=== PATIENT | female | born 1945 | race Caucasian/White ===

== ENCOUNTER → 2016-10-09 | Outpatient (CLI) | payer OTHER ==
[~2016-10-09] MED LIST: CIPROFLOXACIN500 M1 PO; FERROUS SULFAT325 MG PO; LISINOPRIL-HCT1 EACH PO; LOVENOX40 MG/0.4 SC; MOTRIN600 MG PO; TYLENOL EXTRA500 MG PO; ULTRAM50 MG PO; ZESTRIL10 MG PO
[2016-10-09 10:44] LABS: HEMATOCRIT 39.9 % (36.0-46.0); MCH 31.2 PG (29.0-34.0); MCHC 32.1 G/DL (30.0-36.0); MCV 97.3 FL (83-99); MEAN PLAT.VOLUME 10.1 uM^3 (9.5-12.4); PLATELET COUNT 201 K/uL (156-360); RBC DIS.WIDTH-CV 14.1 % (11.8-14.6); RBC DIS.WIDTH-SD 50.6 % (39-53); WHITE BLOOD COUNT 6.4 K/uL (4.1-10.2)
[2016-10-09 10:54] LABS: PROTHROMBIN TIME 10.1 (9.2-11.2); PTT 23.6 (25-32)
== END | disposition home or self-care (01) ==
LOC: EDSTATUS 10-01 10:00 → OPR 10-01 10:00
PROVIDERS: Internal Medicine Pulmonary Disease
PROC: 0BBC3ZX Excision of Right Upper Lung Lobe, Percutaneous Approach, Diagnostic (ICD-10-PCS; principal; 2016-10-09)
DX: C34.11 Malignant neoplasm of upper lobe, right bronchus or lung (principal); Z68.41 Body mass index [BMI] 40.0-44.9, adult; Z83.3 Family history of diabetes mellitus; Z80.42 Family history of malignant neoplasm of prostate
CPT/HCPCS: 71010; 77012; 85027; 85610; 85730; 88305; 88341 TC; 88342 TC; J3010

== ENCOUNTER 2017-06-23 10:13 | Inpatient (IN) | payer OTHER ==
[2017-06-23] VITALS (12 sets, daily range): BP systolic 102–143; BP diastolic 55–83
[~2017-06-23] VITALS: Ht 160 cm; Wt 105.7 kg
[~2017-06-23 10:13] MED LIST changes: +ALIVE WOMEN'S1 EACH PO; +LOSARTAN POTASS25 MG PO; +OMEGA 3 500 SO1 EACH PO
[2017-06-23 11:15] LABS: INTER. NORMALIZED RATIO 1.2; PROTHROMBIN TIME 13.2 SEC (10.2-12.9)
[2017-06-23 11:16] LABS: CHLORIDE 109 mEq/L (99-109); POTASSIUM 4.3 mEq/L (3.7-5.4); SODIUM 140 mEq/L (136-147)
[2017-06-23 11:17] LABS: GLUCOSE 114 mg/dL (70-99)
[2017-06-23 11:19] LABS: ANION GAP 9 MEQ/L (2-14)
[2017-06-23 11:21] LABS: GFR ESTIMATE (CALCULATED) 39 mL/min/
[2017-06-23 11:22] LABS: UREA NITROGEN (BUN) 24 mg/dL (9-23)
[2017-06-23 11:25] LABS: EOSINOPHIL (%) 0.2 % (0-5); HEMATOCRIT 16.7 % (36.0-46.0); IMMATURE GRANULOCYTE (%) 0.5 % (0.0-0.7); INSTRUMENT ABS NEUTROPHIL CT 5.3 K/uL; LYMPHOCYTE COUNT 0.3 K/uL (1.0-2.8); MCH 24.6 PG (29.0-34.0); MCHC 27.5 G/DL (30.0-36.0); MCV 89.3 FL (83-99); MONOCYTE (%) 7.5 % (3-12); MONOCYTE COUNT 0.5 K/uL (0-0.8); NEUTROPHIL (%) 86.1 % (45-76); NEUTROPHIL COUNT 5.3 K/uL (1.8-6.4); NRBC (%) 0.7 /100 WBC (0-0); RBC DIS.WIDTH-CV 17.7 % (11.8-14.6); RBC DIS.WIDTH-SD 56.7 % (39-53); RED BLOOD COUNT 1.87 M/uL (3.80-5.20); WHITE BLOOD COUNT 6.1 K/uL (4.1-10.2)
[2017-06-23] MEDS ORDERED: ASCORBIC ACID250 MG PO (12:21)
[2017-06-23 12:24] LABS: HEMATOLOGY COMMENT 1 SMEAR COMPATIBLE; MEAN PLAT.VOLUME 10.4 uM^3 (9.5-12.4); PLAT.SUFFICIENCY ADEQUATE; PLATELET COUNT 276 K/uL (156-360)
[2017-06-23 13:35] LABS: ADD MIUA? YES; BILIRUBIN NEGATIVE; BLOOD SMALL; COLOR YELLOW ((YELLOW)); GLUCOSE (STRIP) NEGATIVE; KETONES NEGATIVE; LEUKOCYTES SMALL; NITRITE POSITIVE; PROTEIN (STRIP) 30; SPECIFIC GRAVITY 1.018 (1.000-1.030)
[2017-06-23 13:42] LABS: BACTERIA 1+ /HPF; EPITHELIAL CELLS 2+ /HPF; MUCUS TRACE /LPF; RED BLOOD CELLS NONE SEEN /HPF (0-5); UCUL ADDED? YES; WHITE BLOOD CELLS 15-20 /HPF (0-5)
[2017-06-23 22:28] LABS: HEMATOCRIT 27.9 % (36.0-46.0); MCV 89.1 FL (83-99)
[2017-06-24 00:10] VITALS: BP 122/79
[2017-06-24 04:30] VITALS: BP 123/64
[2017-06-24 04:58] LABS: CHLORIDE 105 mEq/L (99-109); POTASSIUM 4.1 mEq/L (3.7-5.4); SODIUM 136 mEq/L (136-147)
[2017-06-24 05:00] LABS: GLUCOSE 94 mg/dL (70-99)
[2017-06-24 05:01] LABS: ANION GAP 8 MEQ/L (2-14); EOSINOPHIL (%) 0.6 % (0-5); IMMATURE GRANULOCYTE (%) 1.1 % (0.0-0.7); IMMATURE GRANULOCYTE COUNT 0.1 K/uL; INSTRUMENT ABS NEUTROPHIL CT 5.7 K/uL; LYMPHOCYTE COUNT 0.5 K/uL (1.0-2.8); MCH 26.5 PG (29.0-34.0); MCHC 30.8 G/DL (30.0-36.0); MCV 86.1 FL (83-99); MEAN PLAT.VOLUME 9.7 uM^3 (9.5-12.4); MONOCYTE (%) 8.6 % (3-12); MONOCYTE COUNT 0.6 K/uL (0-0.8); NEUTROPHIL COUNT 5.7 K/uL (1.8-6.4); PLATELET COUNT 248 K/uL (156-360); RBC DIS.WIDTH-CV 16.9 % (11.8-14.6); RBC DIS.WIDTH-SD 52.5 % (39-53)
[2017-06-24 05:03] LABS: GFR ESTIMATE (CALCULATED) 36 mL/min/
[2017-06-24 05:04] LABS: UREA NITROGEN (BUN) 22 mg/dL (9-23)
[2017-06-24 05:05] LABS: RED BLOOD COUNT 3.02 M/uL (3.80-5.20)
[2017-06-24 07:39] VITALS: BP 162/80
[2017-06-24 12:21] LABS: HEMATOCRIT 26.9 % (36.0-46.0); MCV 86.8 FL (83-99)
[2017-06-24 12:55] VITALS: BP 157/86
[2017-06-24 19:54] LABS: HEMATOCRIT 26.4 % (36.0-46.0); MCV 86.3 FL (83-99)
[2017-06-24 20:15] VITALS: BP 140/73
[2017-06-25] VITALS (9 sets, daily range): BP systolic 110–140; BP diastolic 53–65
[2017-06-25 05:31] LABS: HEMATOCRIT 24.9 % (36.0-46.0); MCH 26.2 PG (29.0-34.0); MCHC 29.7 G/DL (30.0-36.0); MCV 88.3 FL (83-99); MEAN PLAT.VOLUME 10.1 uM^3 (9.5-12.4); NRBC (%) 0.4 /100 WBC (0-0); PLATELET COUNT 227 K/uL (156-360); RBC DIS.WIDTH-CV 16.9 % (11.8-14.6); RBC DIS.WIDTH-SD 53.7 % (39-53); RED BLOOD COUNT 2.82 M/uL (3.80-5.20); WHITE BLOOD COUNT 7.2 K/uL (4.1-10.2)
[2017-06-25 05:54] LABS: ANION GAP 10 MEQ/L (2-14); CHLORIDE 104 MEQ/L (99-109); GFR ESTIMATE (CALCULATED) 34 mL/min/; GLUCOSE 103 mg/dL (70-99); POTASSIUM 4.5 MEQ/L (3.7-5.4); SAMPLE HEMOLYSIS CHECK 0; SAMPLE ICTERIC CHECK 0; SAMPLE LIPEMIA CHECK 0; SODIUM 138 MEQ/L (136-147); UREA NITROGEN (BUN) 20 mg/dL (9-23)
[2017-06-25 08:16] LABS: HEMATOCRIT 23.4 % (36.0-46.0)
[2017-06-25 20:11] LABS: HEMATOCRIT 29.7 % (36.0-46.0); MCV 88.4 FL (83-99)
[2017-06-26 03:59] VITALS: BP 119/76
[2017-06-26 07:15] VITALS: BP 102/50
[2017-06-26 07:57] LABS: HEMATOCRIT 26.6 % (36.0-46.0)
[2017-06-26 09:18] LABS: MCH 27.8 PG (29.0-34.0); MCHC 30.9 G/DL (30.0-36.0); MEAN PLAT.VOLUME 10.2 uM^3 (9.5-12.4); NRBC (%) 0.2 /100 WBC (0-0); PLATELET COUNT 189 K/uL (156-360); RBC DIS.WIDTH-CV 17.4 % (11.8-14.6); RED BLOOD COUNT 2.99 M/uL (3.80-5.20); WHITE BLOOD COUNT 9.6 K/uL (4.1-10.2)
[2017-06-26 09:30] LABS: ANION GAP 8 MEQ/L (2-14); CHLORIDE 107 MEQ/L (99-109); GFR ESTIMATE (CALCULATED) 34 mL/min/; GLUCOSE 114 mg/dL (70-99); POTASSIUM 4.4 MEQ/L (3.7-5.4); SAMPLE HEMOLYSIS CHECK 0; SAMPLE ICTERIC CHECK 0; SAMPLE LIPEMIA CHECK 0; SODIUM 138 MEQ/L (136-147); UREA NITROGEN (BUN) 20 mg/dL (9-23)
[2017-06-26] MEDS ORDERED: PROTONIX IV40 MG PO (11:24)
[2017-06-26] MEDS ORDERED: ANUCORT-HC25 MG PR (11:24)
[2017-06-26 11:39] VITALS: BP 124/53
[2017-06-26] MEDS ORDERED: PANTOPRAZOLE SO40 MG PO (12:00)
[2017-06-26 15:36] VITALS: BP 127/65
[2017-06-26 17:00] VITALS: BP 102/61
== END 2017-06-26 19:23 | disposition home or self-care (01) | DRG 378 ==
LOC: EME 10:13 → EDOF 11:54 → 4EAST 11:54 → ENRESERV 11:56 → EDOF 11:57 → ENRESERV 12:05 → 4EAST 14:38 → EDPENDDISDT 06-26 → EDPENDDISTM 06-26 → 4EAST 06-26 19:23
PROVIDERS: Emergency Medicine; Internal Medicine; Internal Medicine Gastroenterology
PROC: 30233N1 Transfusion of Nonautologous Red Blood Cells into Peripheral Vein, Percutaneous Approach (ICD-10-PCS; principal; 2017-06-23)
PROC: 0W3P8ZZ Control Bleeding in Gastrointestinal Tract, Via Natural or Artificial Opening Endoscopic (ICD-10-PCS; 2017-06-24)
DX: K57.31 Diverticulosis of large intestine without perforation or abscess with bleeding (principal); D62 Acute posthemorrhagic anemia; K62.7 Radiation proctitis; K64.8 Other hemorrhoids; D64.9 Anemia, unspecified; K21.9 Gastro-esophageal reflux disease without esophagitis; J44.9 Chronic obstructive pulmonary disease, unspecified; E66.9 Obesity, unspecified; N18.3 Chronic kidney disease, stage 3 (moderate); I78.1 Nevus, non-neoplastic; I12.9 Hypertensive chronic kidney disease with stage 1 through stage 4 chronic kidney disease, or unspecified chronic kidney disease; Z92.21 Personal history of antineoplastic chemotherapy; Z90.710 Acquired absence of both cervix and uterus; Z83.71 Family history of colonic polyps; Z85.43 Personal history of malignant neoplasm of ovary; Z92.3 Personal history of irradiation; Z85.42 Personal history of malignant neoplasm of other parts of uterus; Z87.442 Personal history of urinary calculi
CPT/HCPCS: 80048; 80069; 81003; 85014; 85018; 85025; 85027; 85610; 85730; 86850; 86900; 86901; 86920; 87077; 87086; 87186; 99281; 99285; C9113; J0696; J1940; J2405; J7030; P9016; P9040

== ENCOUNTER 2017-07-05 17:27 | Inpatient (IN) | payer OTHER ==
[~2017-07-05] VITALS: Ht 160 cm; Wt 101.0 kg
[~2017-07-05 17:27] MED LIST changes: +ANUCORT-HC25 MG PR; +ASCORBIC ACID250 MG PO; +PANTOPRAZOLE SO40 MG PO; +PROTONIX IV40 MG PO
[2017-07-05 18:17] LABS: HEMATOCRIT 25.3 % (36.0-46.0); HEMOGLOBIN 7.6 G/DL (11.9-15.5); MCH 26.6 PG (29.0-34.0); MCV 88.5 FL (83-99); RBC DIS.WIDTH-CV 17.7 % (11.8-14.6); RBC DIS.WIDTH-SD 56.4 % (39-53); RED BLOOD COUNT 2.86 M/uL (3.80-5.20); WHITE BLOOD COUNT 17.9 K/uL (4.1-10.2)
[2017-07-05 18:19] LABS: PLATELET COUNT 272 K/uL (156-360)
[2017-07-05 18:22] LABS: CARBON DIOXIDE (BICARBONATE) 27.1 MEQ/L (20-31)
[2017-07-05 18:30] LABS: CHLORIDE 104 mEq/L (99-109); POTASSIUM 4.3 mEq/L (3.7-5.4); SODIUM 137 mEq/L (136-147)
[2017-07-05 18:31] LABS: GLUCOSE 111 mg/dL (70-99)
[2017-07-05 18:35] LABS: CREATININE 1.5 mg/dL (0.6-1.3); GFR ESTIMATE (CALCULATED) 36 mL/min/
[2017-07-05 18:36] LABS: UREA NITROGEN (BUN) 22 mg/dL (9-23)
[2017-07-05 18:38] LABS: TROP-I INTERPRETATION NEGATIVE; TROPONIN-I < 0.01 ng/mL (0.0-0.30)
[2017-07-05] MEDS ORDERED: TUMS500 MG PO (20:43)
[2017-07-05] MEDS ORDERED: PROTONIX40 MG PO (20:43)
[2017-07-05 20:45] LABS: ALBUMIN 2.7 g/dL (3.2-4.8)
[2017-07-05 20:48] LABS: TOTAL PROTEIN 6.1 g/dL (6.4-8.3)
[2017-07-05 20:50] LABS: TOTAL BILIRUBIN 1.6 mg/dL (0.0-1.0)
[2017-07-05 20:51] LABS: ALKALINE PHOSPHATASE 258 IU/L (3-129)
[2017-07-05 20:53] LABS: AST (GOT) 29 IU/L (2-34)
[2017-07-05 20:54] LABS: ALT (GPT) 61 IU/L (3-49); DIRECT BILIRUBIN 0.9 mg/dL (0.0-0.3)
[2017-07-05 20:55] LABS: LIPASE 39 U/L (1.0-51.0)
[2017-07-06] VITALS (11 sets, daily range): BP systolic 117–153; BP diastolic 59–77
[2017-07-06 00:30] LABS: HEMATOCRIT 25.2 % (36.0-46.0); HEMOGLOBIN 7.5 G/DL (11.9-15.5); MCV 89.4 FL (83-99)
[2017-07-06 06:02] LABS: BASOPHIL (%) 0.1 % (0-1); EOSINOPHIL (%) 0.4 % (0-5); EOSINOPHIL COUNT 0.1 K/uL (0-0.3); HEMATOCRIT 23.1 % (36.0-46.0); HEMOGLOBIN 6.9 G/DL (11.9-15.5); IMMATURE GRANULOCYTE (%) 0.9 % (0.0-0.7); LYMPHOCYTE (%) 2.7 % (15-42); LYMPHOCYTE COUNT 0.4 K/uL (1.0-2.8); MCH 26.6 PG (29.0-34.0); MCHC 29.9 G/DL (30.0-36.0); MCV 89.2 FL (83-99); MONOCYTE (%) 6.7 % (3-12); MONOCYTE COUNT 1.1 K/uL (0-0.8); NEUTROPHIL (%) 89.2 % (45-76); NEUTROPHIL COUNT 13.9 K/uL (1.8-6.4); PLATELET COUNT 245 K/uL (156-360); RBC DIS.WIDTH-CV 17.6 % (11.8-14.6); RBC DIS.WIDTH-SD 56.5 % (39-53); RED BLOOD COUNT 2.59 M/uL (3.80-5.20); WHITE BLOOD COUNT 15.6 K/uL (4.1-10.2)
[2017-07-06 06:08] LABS: ALBUMIN 2.4 g/dL (3.2-4.8)
[2017-07-06 06:09] LABS: AMYLASE 67 IU/L (1-118); CHLORIDE 106 mEq/L (99-109); POTASSIUM 4.7 mEq/L (3.7-5.4); SODIUM 138 mEq/L (136-147)
[2017-07-06 06:11] LABS: GLUCOSE 112 mg/dL (70-99); TOTAL PROTEIN 5.4 g/dL (6.4-8.3)
[2017-07-06 06:13] LABS: TOTAL BILIRUBIN 1.2 mg/dL (0.0-1.0)
[2017-07-06 06:14] LABS: ALKALINE PHOSPHATASE 215 IU/L (3-129)
[2017-07-06 06:15] LABS: CREATININE 1.4 mg/dL (0.6-1.3); GFR ESTIMATE (CALCULATED) 39 mL/min/
[2017-07-06 06:16] LABS: AST (GOT) 25 IU/L (2-34); UREA NITROGEN (BUN) 24 mg/dL (9-23)
[2017-07-06 06:17] LABS: ALT (GPT) 46 IU/L (3-49)
[2017-07-06 06:18] LABS: LIPASE 34 U/L (1.0-51.0)
[2017-07-06 13:33] LABS: HEMATOCRIT 26.2 % (36.0-46.0); MCV 87.9 FL (83-99)
[2017-07-06 13:53] LABS: INTER. NORMALIZED RATIO 1.2
[2017-07-06 19:32] LABS: HEMATOCRIT 27.4 % (36.0-46.0); HEMOGLOBIN 8.1 G/DL (11.9-15.5); MCV 89.5 FL (83-99)
[2017-07-07] VITALS (9 sets, daily range): BP systolic 119–156; BP diastolic 64–81
[2017-07-07 00:38] LABS: HEMATOCRIT 25.1 % (36.0-46.0); HEMOGLOBIN 7.9 G/DL (11.9-15.5); MCH 27.8 PG (29.0-34.0); MCHC 31.5 G/DL (30.0-36.0); MCV 88.4 FL (83-99); NRBC (%) 0.2 /100 WBC (0-0); PLATELET COUNT 242 K/uL (156-360); RBC DIS.WIDTH-CV 16.8 % (11.8-14.6); RBC DIS.WIDTH-SD 54.2 % (39-53); RED BLOOD COUNT 2.84 M/uL (3.80-5.20); WHITE BLOOD COUNT 15.3 K/uL (4.1-10.2)
[2017-07-07 08:04] LABS: HEMOGLOBIN 8.1 G/DL (11.9-15.5); MCH 26.1 PG (29.0-34.0); MCV 87.1 FL (83-99); NRBC (%) 0.1 /100 WBC (0-0); PLATELET COUNT 242 K/uL (156-360); RBC DIS.WIDTH-SD 52.1 % (39-53); WHITE BLOOD COUNT 15.8 K/uL (4.1-10.2)
[2017-07-07 17:11] LABS: HEMATOCRIT 29.3 % (36.0-46.0); MCH 27.4 PG (29.0-34.0); MCHC 30.7 G/DL (30.0-36.0); MCV 89.3 FL (83-99); PLATELET COUNT 212 K/uL (156-360); RBC DIS.WIDTH-CV 17.2 % (11.8-14.6); RBC DIS.WIDTH-SD 55.8 % (39-53); RED BLOOD COUNT 3.28 M/uL (3.80-5.20); WHITE BLOOD COUNT 14.7 K/uL (4.1-10.2)
[2017-07-08 01:18] LABS: HEMATOCRIT 28.8 % (36.0-46.0); MCH 27.6 PG (29.0-34.0); MCHC 31.3 G/DL (30.0-36.0); MCV 88.3 FL (83-99); NRBC (%) 0.1 /100 WBC (0-0); RBC DIS.WIDTH-CV 17.2 % (11.8-14.6); RBC DIS.WIDTH-SD 54.4 % (39-53); RED BLOOD COUNT 3.26 M/uL (3.80-5.20); WHITE BLOOD COUNT 16.5 K/uL (4.1-10.2)
[2017-07-08 01:19] LABS: PLATELET COUNT 287 K/uL (156-360)
[2017-07-08 04:02] VITALS: BP 118/58
[2017-07-08 07:34] VITALS: BP 131/67
[2017-07-08 07:42] LABS: HEMOGLOBIN 7.9 G/DL (11.9-15.5); MCH 26.9 PG (29.0-34.0); MCHC 30.4 G/DL (30.0-36.0); MCV 88.4 FL (83-99); PLATELET COUNT 229 K/uL (156-360); RBC DIS.WIDTH-CV 17.3 % (11.8-14.6); RBC DIS.WIDTH-SD 54.1 % (39-53); RED BLOOD COUNT 2.94 M/uL (3.80-5.20)
[2017-07-08 08:08] LABS: CHLORIDE 104 MEQ/L (99-109); CREATININE 1.2 MG/DL (0.6-1.3); GFR ESTIMATE (CALCULATED) 47 mL/min/; GLUCOSE 91 mg/dL (70-99); SODIUM 136 MEQ/L (136-147); UREA NITROGEN (BUN) 18 mg/dL (9-23)
[2017-07-08 08:12] LABS: POTASSIUM 3.7 MEQ/L (3.7-5.4)
[2017-07-08 11:54] VITALS: BP 114/65
[2017-07-08 12:19] LABS: HEMATOCRIT 28.2 % (36.0-46.0); HEMOGLOBIN 8.4 G/DL (11.9-15.5); MCV 89.8 FL (83-99)
[2017-07-08 16:09] VITALS: BP 131/61
[2017-07-08 18:50] VITALS: BP 134/76
[2017-07-08 23:30] VITALS: BP 114/57
[2017-07-09] VITALS (8 sets, daily range): BP systolic 108–127; BP diastolic 56–77
[2017-07-09 06:53] LABS: HEMATOCRIT 25.4 % (36.0-46.0); HEMOGLOBIN 7.7 G/DL (11.9-15.5); MCH 27.2 PG (29.0-34.0); MCHC 30.3 G/DL (30.0-36.0); MCV 89.8 FL (83-99); PLATELET COUNT 226 K/uL (156-360); RBC DIS.WIDTH-CV 17.2 % (11.8-14.6); RBC DIS.WIDTH-SD 55.9 % (39-53); RED BLOOD COUNT 2.83 M/uL (3.80-5.20); WHITE BLOOD COUNT 11.3 K/uL (4.1-10.2)
[2017-07-09] MEDS ORDERED: CYANOCOBALAM1000 MCG PO (09:17)
[2017-07-09] MEDS ORDERED: VENTOLIN HFA18 GM IH (10:50)
[2017-07-11 02:06] LABS: AP Bone Isoenzyme 22 % (28-66); AP Intestine Isoenzyme 0 % (1-24); AP Liver Isoenzyme 52 % (25-69); AP Macrohepatic Isoenzyme 26 % (<=0); AP Placental Isoenzyme 0 % (<=0); Alkaline Phosphatase, Total 210 U/L (33-130)
== END 2017-07-09 16:12 | disposition home or self-care (01) | DRG 424 ==
LOC: EME 17:27 → 2EAST 22:15 → EDOF 22:15 → ENRESERV 22:17 → 2EAST 23:53
PROVIDERS: Emergency Medicine; Hospitalist; Physician Assistant Medical; Specialist; Student in an Organized Health Care Education/Training Program
PROC: 30233N1 Transfusion of Nonautologous Red Blood Cells into Peripheral Vein, Percutaneous Approach (ICD-10-PCS; principal; 2017-07-06)
PROC: 06H03DZ Insertion of Intraluminal Device into Inferior Vena Cava, Percutaneous Approach (ICD-10-PCS; 2017-07-07)
DX: K85.90 Acute pancreatitis without necrosis or infection, unspecified (principal); K92.1 Melena; D62 Acute posthemorrhagic anemia; I82.411 Acute embolism and thrombosis of right femoral vein; N17.9 Acute kidney failure, unspecified; C78.01 Secondary malignant neoplasm of right lung; K62.7 Radiation proctitis; I12.9 Hypertensive chronic kidney disease with stage 1 through stage 4 chronic kidney disease, or unspecified chronic kidney disease; N18.3 Chronic kidney disease, stage 3 (moderate); K21.9 Gastro-esophageal reflux disease without esophagitis; J44.9 Chronic obstructive pulmonary disease, unspecified; R53.1 Weakness; E66.01 Morbid (severe) obesity due to excess calories; R31.29 Other microscopic hematuria; K76.0 Fatty (change of) liver, not elsewhere classified; K57.30 Diverticulosis of large intestine without perforation or abscess without bleeding; C54.1 Malignant neoplasm of endometrium; R63.4 Abnormal weight loss; D50.0 Iron deficiency anemia secondary to blood loss (chronic); E53.8 Deficiency of other specified B group vitamins; Z85.42 Personal history of malignant neoplasm of other parts of uterus; Z90.710 Acquired absence of both cervix and uterus; Z68.41 Body mass index [BMI] 40.0-44.9, adult; Z87.442 Personal history of urinary calculi; Z87.891 Personal history of nicotine dependence; Z92.21 Personal history of antineoplastic chemotherapy; Z92.3 Personal history of irradiation
CPT/HCPCS: 71010; 71020; 74176; 76705; 80048; 80053; 80076; 82150; 82272; 82607; 82803; 83605; 83690; 83880; 84075 90; 84080 90; 84484; 85014; 85018; 85025; 85027; 85610; 85730; 86850; 86900; 86901; 86920; 87040; 93005; 93970; 94799; 99281; 99285; C1769; C9113; J0690; J1644; J1940; J2405; J3010; J3420; J7030; J7040; J7120; P9016; P9040

== ENCOUNTER 2017-07-24 17:17 | Inpatient (IN) | payer OTHER ==
[~2017-07-24] VITALS: Ht 160 cm; Wt 109.1 kg
[~2017-07-24 17:17] MED LIST changes: +CYANOCOBALAM1000 MCG PO; +PROTONIX40 MG PO; +TUMS500 MG PO; +VENTOLIN HFA18 GM IH
[2017-07-24 18:06] LABS: HEMATOCRIT 29.5 % (36.0-46.0); HEMOGLOBIN 8.9 G/DL (11.9-15.5); MCH 27.5 PG (29.0-34.0); MCHC 30.2 G/DL (30.0-36.0); PLATELET COUNT 289 K/uL (156-360); RBC DIS.WIDTH-CV 18.8 % (11.8-14.6); RBC DIS.WIDTH-SD 61.8 % (39-53); RED BLOOD COUNT 3.24 M/uL (3.80-5.20); WHITE BLOOD COUNT 14.9 K/uL (4.1-10.2)
[2017-07-24 18:12] LABS: ALBUMIN 2.8 g/dL (3.2-4.8); CHLORIDE 106 mEq/L (99-109); POTASSIUM 4.8 mEq/L (3.7-5.4); SODIUM 138 mEq/L (136-147)
[2017-07-24 18:15] LABS: GLUCOSE 107 mg/dL (70-99); TOTAL PROTEIN 5.7 g/dL (6.4-8.3)
[2017-07-24 18:17] LABS: TOTAL BILIRUBIN 1.6 mg/dL (0.0-1.0)
[2017-07-24 18:18] LABS: ALKALINE PHOSPHATASE 203 IU/L (3-129)
[2017-07-24 18:19] LABS: CREATININE 1.4 mg/dL (0.6-1.3); GFR ESTIMATE (CALCULATED) 39 mL/min/
[2017-07-24 18:20] LABS: AST (GOT) 191 IU/L (2-34); UREA NITROGEN (BUN) 19 mg/dL (9-23)
[2017-07-24 18:21] LABS: ALT (GPT) 116 IU/L (3-49)
[2017-07-24 18:53] LABS: LIPASE 1730 U/L (1.0-51.0)
[2017-07-24 19:35] LABS: APPEARANCE SL.HAZY ((CLEAR)); BILIRUBIN NEGATIVE; BLOOD NEGATIVE; COLOR AMBER ((YELLOW)); GLUCOSE (STRIP) NEGATIVE; KETONES NEGATIVE; LEUKOCYTES NEGATIVE; NITRITE POSITIVE; PROTEIN (STRIP) 30; SPECIFIC GRAVITY 1.018 (1.000-1.030)
[2017-07-24 19:56] LABS: BACTERIA 1+ /HPF; EPITHELIAL CELLS RARE /HPF; MUCUS TRACE /LPF; RED BLOOD CELLS 0-5 /HPF (0-5); UCUL ADDED? YES
[2017-07-24 22:13] LABS: BASE EXCESS 2.6 mEq/L (-3 to +3); BICARBONATE 25.9 mEq/L (22-26); CARBOXY HGB 2.1 % (0-5); METHEMOGLOBIN 0.8 % (0-1.5); PCO2 34 mm Hg (35-45); PO2 86 mm Hg (80-100); pH 7.49 (7.35-7.45)
[2017-07-24 22:14] LABS: COMMENTS - BLOOD GASES C+; DEVICE NC; O2 FLOW 3 L/MIN; SITE RR; TOTAL RESP RATE 31 resp/min
[2017-07-25 05:30] VITALS: BP 126/57
[2017-07-25 07:28] VITALS: BP 116/58
[2017-07-25 07:46] LABS: BASOPHIL (%) 0.1 % (0-1); EOSINOPHIL (%) 0.6 % (0-5); EOSINOPHIL COUNT 0.1 K/uL (0-0.3); HEMATOCRIT 24.4 % (36.0-46.0); IMMATURE GRANULOCYTE (%) 0.5 % (0.0-0.7); LYMPHOCYTE (%) 2.9 % (15-42); LYMPHOCYTE COUNT 0.3 K/uL (1.0-2.8); MCH 26.6 PG (29.0-34.0); MCHC 28.7 G/DL (30.0-36.0); MCV 92.8 FL (83-99); MONOCYTE (%) 7.5 % (3-12); MONOCYTE COUNT 0.7 K/uL (0-0.8); NEUTROPHIL (%) 88.4 % (45-76); NEUTROPHIL COUNT 8.5 K/uL (1.8-6.4); RBC DIS.WIDTH-CV 18.7 % (11.8-14.6); RBC DIS.WIDTH-SD 63.7 % (39-53); RED BLOOD COUNT 2.63 M/uL (3.80-5.20); WHITE BLOOD COUNT 9.6 K/uL (4.1-10.2)
[2017-07-25 08:10] LABS: ALBUMIN 2.2 G/DL (3.2-4.8); ALKALINE PHOSPHATASE 153 IU/L (3-129); ALT (GPT) 62 IU/L (3-49); AST (GOT) 84 IU/L (2-34); CHLORIDE 108 MEQ/L (99-109); CREATININE 1.3 MG/DL (0.6-1.3); GFR ESTIMATE (CALCULATED) 43 mL/min/; GLUCOSE 85 mg/dL (70-99); POTASSIUM 4.6 MEQ/L (3.7-5.4); SODIUM 139 MEQ/L (136-147); TOTAL BILIRUBIN 1.1 MG/DL (0.0-1.0); TOTAL PROTEIN 4.3 G/DL (6.4-8.3); UREA NITROGEN (BUN) 20 mg/dL (9-23)
[2017-07-25 08:16] LABS: PLAT.SUFFICIENCY ADEQUATE; PLATELET COUNT 217 K/uL (156-360)
[2017-07-25 11:20] VITALS: BP 129/68
[2017-07-25 15:03] VITALS: BP 122/60
[2017-07-25 20:48] VITALS: BP 122/68
[2017-07-26] VITALS (8 sets, daily range): BP systolic 109–146; BP diastolic 54–79
[2017-07-26 08:40] LABS: HEMATOCRIT 22.7 % (36.0-46.0); MCV 93.4 FL (83-99); PLATELET COUNT 206 K/uL (156-360); RBC DIS.WIDTH-CV 18.4 % (11.8-14.6); RBC DIS.WIDTH-SD 63.4 % (39-53); RED BLOOD COUNT 2.43 M/uL (3.80-5.20); WHITE BLOOD COUNT 6.3 K/uL (4.1-10.2)
[2017-07-26 08:42] LABS: HEMOGLOBIN 6.8 G/DL (11.9-15.5)
[2017-07-26 08:57] LABS: ALBUMIN 2.1 G/DL (3.2-4.8); ALKALINE PHOSPHATASE 135 IU/L (3-129); ALT (GPT) 39 IU/L (3-49); AST (GOT) 33 IU/L (2-34); CHLORIDE 109 MEQ/L (99-109); CREATININE 1.2 MG/DL (0.6-1.3); GFR ESTIMATE (CALCULATED) 47 mL/min/; GLUCOSE 88 mg/dL (70-99); LIPASE 167 U/L (1.0-51.0); POTASSIUM 4.4 MEQ/L (3.7-5.4); SODIUM 136 MEQ/L (136-147); TOTAL BILIRUBIN 0.6 MG/DL (0.0-1.0); TOTAL PROTEIN 4.1 G/DL (6.4-8.3); UREA NITROGEN (BUN) 16 mg/dL (9-23)
[2017-07-27] VITALS (7 sets, daily range): BP systolic 122–160; BP diastolic 62–79
[2017-07-27 08:26] LABS: HEMATOCRIT 24.9 % (36.0-46.0); HEMOGLOBIN 7.5 G/DL (11.9-15.5); MCH 27.2 PG (29.0-34.0); MCHC 30.1 G/DL (30.0-36.0); MCV 90.2 FL (83-99); PLATELET COUNT 214 K/uL (156-360); RBC DIS.WIDTH-CV 18.9 % (11.8-14.6); RBC DIS.WIDTH-SD 61.4 % (39-53); RED BLOOD COUNT 2.76 M/uL (3.80-5.20); WHITE BLOOD COUNT 4.4 K/uL (4.1-10.2)
[2017-07-27 09:03] LABS: ALBUMIN 2.2 G/DL (3.2-4.8); ALKALINE PHOSPHATASE 132 IU/L (3-129); ALT (GPT) 30 IU/L (3-49); AST (GOT) 23 IU/L (2-34); CHLORIDE 107 MEQ/L (99-109); CREATININE 1.1 MG/DL (0.6-1.3); GFR ESTIMATE (CALCULATED) 52 mL/min/; GLUCOSE 88 mg/dL (70-99); LIPASE 123 U/L (1.0-51.0); POTASSIUM 4.2 MEQ/L (3.7-5.4); SODIUM 136 MEQ/L (136-147); TOTAL BILIRUBIN 0.6 MG/DL (0.0-1.0); TOTAL PROTEIN 4.4 G/DL (6.4-8.3); UREA NITROGEN (BUN) 12 mg/dL (9-23)
[2017-07-28 00:10] VITALS: BP 142/64
[2017-07-28 00:36] LABS: HEMATOCRIT 28.4 % (36.0-46.0); HEMOGLOBIN 8.8 G/DL (11.9-15.5); MCV 87.1 FL (83-99); PLATELET COUNT 234 K/uL (156-360); RBC DIS.WIDTH-CV 18.1 % (11.8-14.6); RBC DIS.WIDTH-SD 57.1 % (39-53); RED BLOOD COUNT 3.26 M/uL (3.80-5.20); WHITE BLOOD COUNT 4.4 K/uL (4.1-10.2)
[2017-07-28 07:17] VITALS: BP 164/79
[2017-07-28 12:04] LABS: HEMATOCRIT 28.3 % (36.0-46.0); HEMOGLOBIN 8.6 G/DL (11.9-15.5); MCV 88.2 FL (83-99)
[2017-07-28 12:13] LABS: INTER. NORMALIZED RATIO 1.1
[2017-07-28 12:16] LABS: PTT 24.4 SEC (25-37)
[2017-07-28 23:39] VITALS: BP 138/79
[2017-07-29 07:25] LABS: CHLORIDE 107 MEQ/L (99-109); CREATININE 1.5 MG/DL (0.6-1.3); GFR ESTIMATE (CALCULATED) 36 mL/min/; GLUCOSE 107 mg/dL (70-99); POTASSIUM 4.4 MEQ/L (3.7-5.4); SODIUM 137 MEQ/L (136-147); UREA NITROGEN (BUN) 10 mg/dL (9-23)
[2017-07-29 07:35] VITALS: BP 143/77
[2017-07-29 08:29] LABS: HEMATOCRIT 29.6 % (36.0-46.0); MCH 27.2 PG (29.0-34.0); MCHC 30.4 G/DL (30.0-36.0); MCV 89.4 FL (83-99); PLATELET COUNT 257 K/uL (156-360); RBC DIS.WIDTH-CV 18.5 % (11.8-14.6); RBC DIS.WIDTH-SD 58.7 % (39-53); RED BLOOD COUNT 3.31 M/uL (3.80-5.20); WHITE BLOOD COUNT 4.6 K/uL (4.1-10.2)
[2017-07-29 12:12] VITALS: BP 149/75
[2017-07-29 20:20] VITALS: BP 152/93
[2017-07-29 23:30] VITALS: BP 140/68
[2017-07-30 04:15] VITALS: BP 166/69
[2017-07-30 06:28] LABS: MCH 26.8 PG (29.0-34.0); MCHC 29.6 G/DL (30.0-36.0); MCV 90.3 FL (83-99); PLATELET COUNT 228 K/uL (156-360); RBC DIS.WIDTH-CV 18.3 % (11.8-14.6); RBC DIS.WIDTH-SD 59.7 % (39-53); RED BLOOD COUNT 2.99 M/uL (3.80-5.20)
[2017-07-30 07:44] LABS: ALBUMIN 2.2 G/DL (3.2-4.8); ALKALINE PHOSPHATASE 103 IU/L (3-129); ALT (GPT) 20 IU/L (3-49); AST (GOT) 24 IU/L (2-34); CHLORIDE 107 MEQ/L (99-109); CREATININE 1.3 MG/DL (0.6-1.3); GFR ESTIMATE (CALCULATED) 43 mL/min/; GLUCOSE 94 mg/dL (70-99); MAGNESIUM 1.8 mg/dl (1.3-2.7); POTASSIUM 5.2 MEQ/L (3.7-5.4); SODIUM 137 MEQ/L (136-147); TOTAL PROTEIN 4.2 G/DL (6.4-8.3); UREA NITROGEN (BUN) 9 mg/dL (9-23)
[2017-07-30 07:49] LABS: TOTAL BILIRUBIN 0.4 MG/DL (0.0-1.0)
[2017-07-30 08:01] VITALS: BP 145/73
[2017-07-30 11:41] VITALS: BP 160/75
[2017-07-30 15:59] VITALS: BP 129/73
[2017-07-30 20:00] VITALS: BP 144/62
[2017-07-31] VITALS (7 sets, daily range): BP systolic 126–169; BP diastolic 61–96
[2017-07-31 05:30] LABS: BASOPHIL (%) 0.1 % (0-1); EOSINOPHIL (%) 0.4 % (0-5); HEMATOCRIT 27.4 % (36.0-46.0); HEMOGLOBIN 8.1 G/DL (11.9-15.5); IMMATURE GRANULOCYTE (%) 0.6 % (0.0-0.7); LYMPHOCYTE (%) 6.4 % (15-42); LYMPHOCYTE COUNT 0.4 K/uL (1.0-2.8); MCHC 29.6 G/DL (30.0-36.0); MCV 91.3 FL (83-99); MONOCYTE (%) 7.2 % (3-12); MONOCYTE COUNT 0.5 K/uL (0-0.8); NEUTROPHIL (%) 85.3 % (45-76); NEUTROPHIL COUNT 5.7 K/uL (1.8-6.4); PLATELET COUNT 233 K/uL (156-360); RBC DIS.WIDTH-CV 18.6 % (11.8-14.6); RBC DIS.WIDTH-SD 60.6 % (39-53); WHITE BLOOD COUNT 6.7 K/uL (4.1-10.2)
[2017-07-31 05:58] LABS: ALBUMIN 2.4 G/DL (3.2-4.8); ALKALINE PHOSPHATASE 107 IU/L (3-129); ALT (GPT) 19 IU/L (3-49); AST (GOT) 26 IU/L (2-34); CHLORIDE 105 MEQ/L (99-109); CREATININE 1.5 MG/DL (0.6-1.3); GFR ESTIMATE (CALCULATED) 36 mL/min/; GLUCOSE 133 mg/dL (70-99); POTASSIUM 4.4 MEQ/L (3.7-5.4); SODIUM 138 MEQ/L (136-147); TOTAL BILIRUBIN 0.3 MG/DL (0.0-1.0); TOTAL PROTEIN 4.4 G/DL (6.4-8.3); UREA NITROGEN (BUN) 12 mg/dL (9-23)
[2017-07-31] MEDS ORDERED: ONDANSETRON HCL8 MG PO (09:09)
[2017-07-31] MEDS ORDERED: HYDROMORPHONE HC2 MG PO (09:10)
[2017-07-31] MEDS ORDERED: COLACE100 MG PO (09:10)
[2017-08-01] VITALS (8 sets, daily range): BP systolic 124–156; BP diastolic 59–82
[2017-08-01 05:46] LABS: BASOPHIL (%) 0.4 % (0-1); EOSINOPHIL (%) 1.8 % (0-5); EOSINOPHIL COUNT 0.1 K/uL (0-0.3); HEMATOCRIT 27.6 % (36.0-46.0); HEMOGLOBIN 8.2 G/DL (11.9-15.5); IMMATURE GRANULOCYTE (%) 0.6 % (0.0-0.7); LYMPHOCYTE (%) 10.1 % (15-42); LYMPHOCYTE COUNT 0.5 K/uL (1.0-2.8); MCH 26.6 PG (29.0-34.0); MCHC 29.7 G/DL (30.0-36.0); MCV 89.6 FL (83-99); MONOCYTE (%) 7.7 % (3-12); MONOCYTE COUNT 0.4 K/uL (0-0.8); NEUTROPHIL (%) 79.4 % (45-76); NEUTROPHIL COUNT 3.9 K/uL (1.8-6.4); PLATELET COUNT 233 K/uL (156-360); RBC DIS.WIDTH-CV 18.3 % (11.8-14.6); RBC DIS.WIDTH-SD 59.7 % (39-53); RED BLOOD COUNT 3.08 M/uL (3.80-5.20)
[2017-08-01 06:28] LABS: ALBUMIN 2.5 G/DL (3.2-4.8); ALKALINE PHOSPHATASE 99 IU/L (3-129); ALT (GPT) 15 IU/L (3-49); AST (GOT) 18 IU/L (2-34); CHLORIDE 105 MEQ/L (99-109); CREATININE 1.3 MG/DL (0.6-1.3); GFR ESTIMATE (CALCULATED) 43 mL/min/; GLUCOSE 129 mg/dL (70-99); POTASSIUM 4.1 MEQ/L (3.7-5.4); SODIUM 140 MEQ/L (136-147); TOTAL PROTEIN 4.4 G/DL (6.4-8.3); UREA NITROGEN (BUN) 10 mg/dL (9-23)
[2017-08-01 06:30] LABS: TOTAL BILIRUBIN 0.4 MG/DL (0.0-1.0)
[2017-08-01] MEDS ORDERED: CEFTIN500 MG PO (14:10)
[2017-08-01 15:51] LABS: HEMATOCRIT 29.2 % (36.0-46.0); HEMOGLOBIN 8.7 G/DL (11.9-15.5); MCH 27.1 PG (29.0-34.0); MCHC 29.8 G/DL (30.0-36.0); PLATELET COUNT 235 K/uL (156-360); RBC DIS.WIDTH-CV 18.3 % (11.8-14.6); RBC DIS.WIDTH-SD 60.4 % (39-53); RED BLOOD COUNT 3.21 M/uL (3.80-5.20); WHITE BLOOD COUNT 5.1 K/uL (4.1-10.2)
[2017-08-02 03:27] VITALS: BP 148/73
[2017-08-02 05:08] LABS: BASOPHIL (%) 0.4 % (0-1); EOSINOPHIL (%) 2.1 % (0-5); EOSINOPHIL COUNT 0.1 K/uL (0-0.3); HEMOGLOBIN 7.9 G/DL (11.9-15.5); IMMATURE GRANULOCYTE (%) 0.8 % (0.0-0.7); LYMPHOCYTE (%) 10.3 % (15-42); LYMPHOCYTE COUNT 0.5 K/uL (1.0-2.8); MCH 27.3 PG (29.0-34.0); MCHC 30.4 G/DL (30.0-36.0); MONOCYTE (%) 6.8 % (3-12); MONOCYTE COUNT 0.4 K/uL (0-0.8); NEUTROPHIL (%) 79.6 % (45-76); NEUTROPHIL COUNT 4.1 K/uL (1.8-6.4); PLATELET COUNT 210 K/uL (156-360); RBC DIS.WIDTH-CV 18.2 % (11.8-14.6); RBC DIS.WIDTH-SD 59.8 % (39-53); RED BLOOD COUNT 2.89 M/uL (3.80-5.20); WHITE BLOOD COUNT 5.2 K/uL (4.1-10.2)
[2017-08-02 05:21] LABS: CHLORIDE 108 mEq/L (99-109); POTASSIUM 4.1 mEq/L (3.7-5.4); SODIUM 137 mEq/L (136-147)
[2017-08-02 05:23] LABS: GLUCOSE 111 mg/dL (70-99)
[2017-08-02 05:27] LABS: CREATININE 1.2 mg/dL (0.6-1.3); GFR ESTIMATE (CALCULATED) 47 mL/min/
[2017-08-02 05:28] LABS: UREA NITROGEN (BUN) 13 mg/dL (9-23)
[2017-08-02 07:52] VITALS: BP 135/74
[2017-08-02 11:57] VITALS: BP 142/70
[2017-08-02 12:43] LABS: HEMATOCRIT 27.4 % (36.0-46.0); HEMOGLOBIN 8.1 G/DL (11.9-15.5); MCV 90.4 FL (83-99)
[2017-08-02 17:27] VITALS: BP 145/65
[2017-08-02 19:27] LABS: HEMOGLOBIN 9.1 G/DL (11.9-15.5); MCV 90.1 FL (83-99)
[2017-08-02 20:06] VITALS: BP 149/68
[2017-08-02 23:44] VITALS: BP 161/71
[2017-08-03 00:53] VITALS: BP 154/78
[2017-08-03 04:19] VITALS: BP 140/69
[2017-08-03 07:04] LABS: BASOPHIL (%) 0.8 % (0-1); EOSINOPHIL (%) 2.8 % (0-5); EOSINOPHIL COUNT 0.1 K/uL (0-0.3); HEMATOCRIT 27.2 % (36.0-46.0); HEMOGLOBIN 8.1 G/DL (11.9-15.5); IMMATURE GRANULOCYTE (%) 0.6 % (0.0-0.7); LYMPHOCYTE (%) 10.3 % (15-42); LYMPHOCYTE COUNT 0.5 K/uL (1.0-2.8); MCHC 29.8 G/DL (30.0-36.0); MCV 90.7 FL (83-99); MONOCYTE (%) 7.1 % (3-12); MONOCYTE COUNT 0.4 K/uL (0-0.8); NEUTROPHIL (%) 78.4 % (45-76); NEUTROPHIL COUNT 3.9 K/uL (1.8-6.4); PLATELET COUNT 229 K/uL (156-360); RBC DIS.WIDTH-SD 59.1 % (39-53)
[2017-08-03 07:25] LABS: CHLORIDE 106 MEQ/L (99-109); CREATININE 1.1 MG/DL (0.6-1.3); GFR ESTIMATE (CALCULATED) 52 mL/min/; GLUCOSE 120 mg/dL (70-99); MAGNESIUM 1.6 mg/dl (1.3-2.7); POTASSIUM 4.1 MEQ/L (3.7-5.4); SODIUM 138 MEQ/L (136-147); UREA NITROGEN (BUN) 14 mg/dL (9-23)
[2017-08-03 08:01] VITALS: BP 135/73
[2017-08-03 16:11] VITALS: BP 160/74
[2017-08-03 21:08] VITALS: BP 139/78
[2017-08-03 21:30] VITALS: BP 127/66
[2017-08-04] VITALS: BP 150/72
[2017-08-04 09:19] VITALS: BP 163/95
[2017-08-04 10:56] LABS: HEMATOCRIT 31.9 % (36.0-46.0); HEMOGLOBIN 9.8 G/DL (11.9-15.5); MCH 27.4 PG (29.0-34.0); MCHC 30.7 G/DL (30.0-36.0); MCV 89.1 FL (83-99); PLATELET COUNT 254 K/uL (156-360); RBC DIS.WIDTH-SD 57.6 % (39-53); RED BLOOD COUNT 3.58 M/uL (3.80-5.20); WHITE BLOOD COUNT 6.8 K/uL (4.1-10.2)
[2017-08-04 11:11] LABS: CHLORIDE 102 MEQ/L (99-109); POTASSIUM 4.2 MEQ/L (3.7-5.4); SODIUM 136 MEQ/L (136-147)
[2017-08-04 11:16] LABS: CREATININE 1.2 MG/DL (0.6-1.3); GFR ESTIMATE (CALCULATED) 47 mL/min/; GLUCOSE 111 mg/dL (70-99); UREA NITROGEN (BUN) 15 mg/dL (9-23)
[2017-08-05 00:01] VITALS: BP 134/70
[2017-08-05 06:16] LABS: HEMATOCRIT 27.7 % (36.0-46.0); HEMOGLOBIN 8.5 G/DL (11.9-15.5); MCH 27.1 PG (29.0-34.0); MCHC 30.7 G/DL (30.0-36.0); MCV 88.2 FL (83-99); PLATELET COUNT 261 K/uL (156-360); RBC DIS.WIDTH-CV 17.8 % (11.8-14.6); RBC DIS.WIDTH-SD 56.7 % (39-53); RED BLOOD COUNT 3.14 M/uL (3.80-5.20)
[2017-08-05 06:50] LABS: CHLORIDE 103 MEQ/L (99-109); CREATININE 1.1 MG/DL (0.6-1.3); GFR ESTIMATE (CALCULATED) 52 mL/min/; GLUCOSE 84 mg/dL (70-99); POTASSIUM 4.7 MEQ/L (3.7-5.4); SODIUM 136 MEQ/L (136-147); UREA NITROGEN (BUN) 13 mg/dL (9-23)
[2017-08-05 08:30] VITALS: BP 146/62
== END 2017-08-05 15:12 | DRG 418 ==
LOC: EME 17:17 → 2EASTP 21:20 → 4SOUTH 21:20 → EDOF 21:20 → ENRESERV 21:22 → 2EASTP 07-25 05:21 → ENRESERV 07-29 16:01 → 4EAST 07-29 20:29 → CANRESERV 07-31 07:47 → ENRESERV 07-31 07:47 → 4SOUTH 08-01 02:51
PROVIDERS: Family Medicine; Internal Medicine; Internal Medicine Gastroenterology; Surgery
PROC: 30233N1 Transfusion of Nonautologous Red Blood Cells into Peripheral Vein, Percutaneous Approach (ICD-10-PCS; 2017-07-26)
PROC: 0DJD8ZZ Inspection of Lower Intestinal Tract, Via Natural or Artificial Opening Endoscopic (ICD-10-PCS; principal; 2017-07-28)
PROC: 0FT44ZZ Resection of Gallbladder, Percutaneous Endoscopic Approach (ICD-10-PCS; 2017-07-29)
PROC: 0W3P8ZZ Control Bleeding in Gastrointestinal Tract, Via Natural or Artificial Opening Endoscopic (ICD-10-PCS; 2017-08-04)
DX: K85.10 Biliary acute pancreatitis without necrosis or infection (principal); I82.401 Acute embolism and thrombosis of unspecified deep veins of right lower extremity; N39.0 Urinary tract infection, site not specified; C54.1 Malignant neoplasm of endometrium; D62 Acute posthemorrhagic anemia; C78.01 Secondary malignant neoplasm of right lung; J44.9 Chronic obstructive pulmonary disease, unspecified; I12.9 Hypertensive chronic kidney disease with stage 1 through stage 4 chronic kidney disease, or unspecified chronic kidney disease; K57.30 Diverticulosis of large intestine without perforation or abscess without bleeding; K21.9 Gastro-esophageal reflux disease without esophagitis; N17.9 Acute kidney failure, unspecified; R09.02 Hypoxemia; N18.3 Chronic kidney disease, stage 3 (moderate); E66.01 Morbid (severe) obesity due to excess calories; K62.7 Radiation proctitis; Z68.41 Body mass index [BMI] 40.0-44.9, adult; K56.41 Fecal impaction; E86.0 Dehydration; K64.8 Other hemorrhoids; K76.0 Fatty (change of) liver, not elsewhere classified; B96.20 Unspecified Escherichia coli [E. coli] as the cause of diseases classified elsewhere; Z92.3 Personal history of irradiation; Z92.21 Personal history of antineoplastic chemotherapy; Z90.710 Acquired absence of both cervix and uterus; Z87.442 Personal history of urinary calculi; Z86.718 Personal history of other venous thrombosis and embolism; Z85.43 Personal history of malignant neoplasm of ovary; Z85.42 Personal history of malignant neoplasm of other parts of uterus; Z83.71 Family history of colonic polyps
CPT/HCPCS: 36600; 71045; 71046; 74176; 74300; 76705; 78226; 80048; 80053; 81003; 82803; 83690; 83735; 85014; 85018; 85025; 85027; 85610; 85730; 86850; 86900; 86901; 86920; 87077; 87086; 87186; 88304; 93005; 94799; 97530 GP; 99202; 99281; 99285; A9537; C9113; J0690; J0696; J1100; J1170; J1940; J2250; J2405; J2710; J2765; J3010; J7030; P9016; P9040

== ENCOUNTER → 2017-10-29 | Outpatient (CLI) | payer OTHER ==
[~2017-10-29] VITALS: Ht 160 cm; Wt 105.2 kg
[~2017-10-29] MED LIST changes: +CEFTIN500 MG PO; +COLACE100 MG PO; +FEOSOL325 MG PO; +HYDROMORPHONE HC2 MG PO; +ODOR FREE GARL1 EAC1 PO; +ONDANSETRON HCL8 MG PO; +VITAMIN D31000 UNIT PO
== END | disposition home or self-care (01) ==
LOC: AMB 08:46
PROC: 0D5P8ZZ Destruction of Rectum, Via Natural or Artificial Opening Endoscopic (ICD-10-PCS; principal; 2017-10-29)
DX: K62.7 Radiation proctitis (principal); K57.30 Diverticulosis of large intestine without perforation or abscess without bleeding; K92.1 Melena; K52.0 Gastroenteritis and colitis due to radiation; C54.1 Malignant neoplasm of endometrium; I10 Essential (primary) hypertension; D53.9 Nutritional anemia, unspecified; E66.9 Obesity, unspecified; J98.4 Other disorders of lung; I82.401 Acute embolism and thrombosis of unspecified deep veins of right lower extremity

== ENCOUNTER 2018-01-15 09:54 | Observation (INO) | payer OTHER ==
[~2018-01-15] VITALS: Ht 160 cm; Wt 109.3 kg
[2018-01-15] VITALS (9 sets, daily range): BP systolic 123–163; BP diastolic 59–104
[2018-01-15 09:20] LABS: HEMATOCRIT 24.4 % (36.0-46.0); MCH 21.9 PG (29.0-34.0); MCV 81.1 FL (83-99); PLATELET COUNT 321 K/uL (156-360); RBC DIS.WIDTH-CV 18.6 % (11.8-14.6); RBC DIS.WIDTH-SD 54.6 % (39-53); RED BLOOD COUNT 3.01 M/uL (3.80-5.20); WHITE BLOOD COUNT 7.1 K/uL (4.1-10.2)
[2018-01-15 09:21] LABS: HEMOGLOBIN 6.6 G/DL (11.9-15.5)
[2018-01-15 09:30] LABS: INTER. NORMALIZED RATIO 1.1
[2018-01-15 09:33] LABS: PTT 23.1 SEC (25-37)
[~2018-01-15 09:54] MED LIST changes: +BENADRYL50 MG PO; +CIPRO500 MG PO; +DEXAMETHASONE4 MG PO; +FLEXERIL10 MG PO; +MULTI VITAMIN1 EACH PO; +NORVASC5 MG PO; +NYSTATIN100000 UN1 PO; +PROCHLORPERAZIN10 MG PO; +RANITIDINE HCL150 MG PO; +VITAMIN B12-FO1 EACH PO; +VITAMIN D2000 UNI1 PO
[2018-01-15 11:45] LABS: CHLORIDE 110 mEq/L (99-109); POTASSIUM 4.4 mEq/L (3.7-5.4); SODIUM 142 mEq/L (136-147)
[2018-01-15 11:46] LABS: GLUCOSE 103 mg/dL (70-99)
[2018-01-15 11:50] LABS: CREATININE 1.3 mg/dL (0.6-1.3); GFR ESTIMATE (CALCULATED) 43 mL/min/
[2018-01-15 11:51] LABS: UREA NITROGEN (BUN) 19 mg/dL (9-23)
[2018-01-15] MEDS ORDERED: B-121000 MC2 PO (13:57)
[2018-01-15 21:46] LABS: HEMATOCRIT 28.1 % (36.0-46.0); HEMOGLOBIN 8.1 G/DL (11.9-15.5); MCV 81.7 FL (83-99)
[2018-01-16] VITALS (9 sets, daily range): BP systolic 115–142; BP diastolic 57–76
[2018-01-16 05:23] LABS: HEMATOCRIT 25.7 % (36.0-46.0); HEMOGLOBIN 7.3 G/DL (11.9-15.5); MCH 23.4 PG (29.0-34.0); MCHC 28.4 G/DL (30.0-36.0); MCV 82.4 FL (83-99); PLATELET COUNT 250 K/uL (156-360); RBC DIS.WIDTH-CV 17.7 % (11.8-14.6); RBC DIS.WIDTH-SD 53.2 % (39-53); RED BLOOD COUNT 3.12 M/uL (3.80-5.20)
[2018-01-16 05:54] LABS: CHLORIDE 111 MEQ/L (99-109); CREATININE 1.3 MG/DL (0.6-1.3); GFR ESTIMATE (CALCULATED) 43 mL/min/; GLUCOSE 89 mg/dL (70-99); POTASSIUM 4.4 MEQ/L (3.7-5.4); SODIUM 140 MEQ/L (136-147); UREA NITROGEN (BUN) 18 mg/dL (9-23)
[2018-01-16 14:31] LABS: HEMATOCRIT 34.1 % (36.0-46.0); HEMOGLOBIN 9.8 G/DL (11.9-15.5)
== END 2018-01-16 17:14 | disposition home or self-care (01) ==
LOC: EME 09:54 → EDOF 13:02 → 4SOUTH 13:02 → ENRESERV 13:02 → EDOF 13:02 → ENRESERV 14:41 → 4SOUTH 15:33
PROVIDERS: Anesthesiology; Emergency Medicine; Internal Medicine; Nurse Practitioner Adult Health
PROC: 30233N1 Transfusion of Nonautologous Red Blood Cells into Peripheral Vein, Percutaneous Approach (ICD-10-PCS; principal; 2018-01-15)
DX: D64.9 Anemia, unspecified (principal); Z85.42 Personal history of malignant neoplasm of other parts of uterus; C78.00 Secondary malignant neoplasm of unspecified lung; I12.9 Hypertensive chronic kidney disease with stage 1 through stage 4 chronic kidney disease, or unspecified chronic kidney disease; N18.3 Chronic kidney disease, stage 3 (moderate); K62.7 Radiation proctitis; E66.9 Obesity, unspecified; Z68.41 Body mass index [BMI] 40.0-44.9, adult; K92.1 Melena; J44.9 Chronic obstructive pulmonary disease, unspecified; Z86.19 Personal history of other infectious and parasitic diseases; Z87.442 Personal history of urinary calculi; Z90.710 Acquired absence of both cervix and uterus; Z90.79 Acquired absence of other genital organ(s); Z90.722 Acquired absence of ovaries, bilateral; Z86.718 Personal history of other venous thrombosis and embolism; Z92.21 Personal history of antineoplastic chemotherapy; K21.9 Gastro-esophageal reflux disease without esophagitis; I78.0 Hereditary hemorrhagic telangiectasia
CPT/HCPCS: 71045; 80048; 81003; 85014; 85018; 85025; 85027; 85610; 85730; 86850; 86900; 86901; 86920; 93005; 99281; 99285; C9113; G0378; P9016

== ENCOUNTER → 2018-01-30 | Outpatient (CLI) | payer OTHER ==
[~2018-01-30] MED LIST changes: +B-121000 MC2 PO
== END | disposition home or self-care (01) ==
LOC: OPR 01-20 09:00 → EDSTATUS 01-23 08:00 → OPR 08:21
PROC: 0BBC3ZX Excision of Right Upper Lung Lobe, Percutaneous Approach, Diagnostic (ICD-10-PCS; principal; 2018-01-30)
DX: C78.01 Secondary malignant neoplasm of right lung (principal); Z85.42 Personal history of malignant neoplasm of other parts of uterus; N18.3 Chronic kidney disease, stage 3 (moderate); D64.9 Anemia, unspecified; J44.9 Chronic obstructive pulmonary disease, unspecified; Z92.3 Personal history of irradiation; Z92.21 Personal history of antineoplastic chemotherapy
CPT/HCPCS: 71045; 77012; 88305; 88341 TC; 88342 TC; J3010